=== PATIENT | female | born 1950 | race Two or more races ===

== ENCOUNTER 2025-08-01 08:51 | Day surgery (SDC) | payer MEDICARE, OTHER, SELFPAY ==
--- NOTE | 2025-07-05 12:45 | CM ---
Demographics:confirmed
Living situation: Lives with
Support Person Post Operatively:
History of
VN: yes, not currently on service
SNF: No
Outpatient: [facility], appointments made
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
PCP: active
Pharmacy: [facility]
Post Operative Discharge Plan: Home with , outpatient PT at [facility] in [place].
[2025-07-15 10:51] LABS: Hematocrit 38.6 % (37.0-47.0); Hemoglobin 12.4 g/dL (12.0-16.0); Mean Corp Hgb Conc. 32.1 g/dL (33.0-37.0); Mean Corpuscular Volume 98.2 fL (81.0-99.0); Platelet Count 342 10^3/uL (130-400); Red Cell Dist. Width 13.5 % (11.5-14.5)
[2025-07-15 11:33] LABS: ALT (SGPT) 18 U/L (0-35); AST (SGOT) 22 U/L (14-36); Albumin 4.2 g/dl (3.5-5.0); Alkaline Phosphatase 102 U/L (38-126); Blood Urea Nitrogen 20 mg/dl (7-17); Calcium 10.0 mg/dl (8.4-10.2); Carbon Dioxide 30 mmol/L (22-30); Chloride 106 mmol/L (98-107); Glucose 109 mg/dl (70-99); Potassium 5.1 mmol/L (3.5-5.1); Sodium 141 mmol/L (135-145); Total Protein 6.8 g/dl (6.3-8.2); eGFR > 60.00
[2025-07-15 11:44] LABS: Glycohemoglobin (HgbA1c) 6.3 % (4.0-5.6)
[2025-07-15 14:12] VITALS: BMI 36.5
[2025-07-19 09:21] VITALS: BMI 36.5
[2025-08-01] VITALS (20 sets, daily range): BP systolic 87–157; BP diastolic 38–79; PULSE 72–73; O2SAT 98; BMI 36.5
--- NOTE | 2025-08-01 09:14 | W.PN.ORTHO ---
Today's Communication / Plan
-
d/c when stable
Assessment
.
Dressing:
Clean, dry and intact.
Assessment:
Hx spleenectomy
Obesity BMI 36.5
Plan
.
Surgery / Date: L TKA Dr Alvarenga 08/01/25
DVT Prophylaxis: Aspirin
Activity:
Out of bed.
PT/OT
Discharge Plan: Home w/ Outpatient PT
Vital Signs and Labs
.
Vital Signs and Labs:
Lab Results
07/15/25 09:56
07/15/25 09:56
Temp Pulse Resp BP Pulse Ox
98.3 F 79 16 144/79 97
08/01/25 09:13 08/01/25 09:13 08/01/25 09:13 08/01/25 09:13 08/01/25 09:13
[2025-08-01] MEDS: NORMOSOL-R/PLASMALYTE-A 1000 IV ×2 (09:40→14:16)
[2025-08-01] MEDS: CELEBREX 200 MG PO (09:40)
[2025-08-01] MEDS: TYLENOL 650 MG PO ×3 (09:40→20:14)
[2025-08-01] MEDS: ZOFRAN 4 MG IV (12:30)
[2025-08-01] MEDS: ROXICODONE 5 MG PO ×2 (12:57→14:59)
[2025-08-01] MEDS: PROTONIX 40 MG PO (14:17)
--- NOTE | 2025-08-01 14:36 | PTCARENOTE ---
Pt arrived to [facility] s/p Left TKA. Left knee dressing with scant sanguineous drainage. 96% on RA. Teds/foot pumps on pt. Admission questions answered. Pt oriented to room and call tucker. Bed locked and in lowest position. at bedside. Care
ongoing.
[2025-08-01] MEDS: LIPITOR 20 MG PO (18:10)
[2025-08-01] MEDS: ANCEF 5 IV (18:10)
[2025-08-01] MEDS: DECADRON 4 MG IV (18:10)
[2025-08-01] MEDS: ASPIRIN 325 MG PO (18:10)
[2025-08-01] MEDS: TORADOL 15 MG IV (18:10)
[2025-08-01] MEDS: ROXICODONE 10 MG PO (19:18)
[2025-08-01] MEDS: BACTROBAN 2% OINTMENT 1 APPLIC NASAL (20:13)
[2025-08-01] MEDS: COLACE 100 MG PO (20:13)
[2025-08-01] MEDS: COREG 3.125 MG PO (20:13)
[2025-08-01] MEDS: SENOKOT 17.2 MG PO (20:13)
[2025-08-01] MEDS: PEPCID 20 MG PO (22:30)
[2025-08-01] MEDS: NEURONTIN 300 MG PO (22:30)
[2025-08-01] MEDS: DILAUDID 0.5 MG IV (22:31)
[2025-08-02] MEDS: TYLENOL PO (00:23)
[2025-08-02] MEDS: ANCEF 5 IV (02:35)
[2025-08-02] MEDS: TYLENOL 650 MG PO ×3 (03:06→11:12)
[2025-08-02 03:10] VITALS: BP 141/75
[2025-08-02] MEDS: TORADOL 15 MG IV (06:04)
[2025-08-02] MEDS: ROXICODONE 10 MG PO ×2 (06:04→11:12)
[2025-08-02] MEDS: DECADRON 4 MG IV (06:04)
[2025-08-02 07:55] VITALS: BP 137/57
[2025-08-02] MEDS: MOBIC 15 MG PO (08:01)
[2025-08-02] MEDS: BACTROBAN 2% OINTMENT 1 APPLIC NASAL (08:01)
[2025-08-02] MEDS: ASPIRIN 325 MG PO (08:01)
[2025-08-02] MEDS: SENOKOT 17.2 MG PO (08:01)
[2025-08-02] MEDS: PROTONIX 40 MG PO (08:01)
[2025-08-02] MEDS: COLACE 100 MG PO (08:01)
[2025-08-02 09:04] VITALS: BP 127/66; PULSE 80; O2SAT 95
--- NOTE | 2025-08-02 09:04 | CM ---
CM reviewed medical records. Plan for discharge to home with outpatient PT. Patient confirmed appointment.
PLAN: Home with outpatient PT.
[2025-08-02] MEDS: COREG PO (09:24)
[2025-08-02 10:16] VITALS: BP 120/64; BP 139/88; PULSE 77; O2SAT 96
--- NOTE | 2025-08-02 11:05 | W.PN.ORTHO ---
Today's Communication / Plan
-
d/c
Assessment
.
Distal Motor Intact: Yes
Dressing:
Clean, dry and intact.
Assessment:
Hx PACs-resume BB tonight-stable
Hx spleenectomy
Obesity BMI 36.5
--Cefadroxil abx ppx OP Rx
Plan
.
Surgery / Date: L LAURYN Alvarenga 08/01/25
DVT Prophylaxis: Aspirin
Activity:
Out of bed.
PT/OT
Discharge Plan: Home w/ Outpatient PT
Subjective
.
.:
Patient resting comfortably.
Vital Signs and Labs
.
Vital Signs and Labs:
Lab Results
07/15/25 09:56
07/15/25 09:56
Temp Pulse Resp BP Pulse Ox
98.9 F 77 17 120/64 95
08/02/25 07:55 08/02/25 09:24 08/02/25 07:55 08/02/25 09:24 08/02/25 09:43
Non-invasive Hgb result: 13
Physical Exam
-
HEENT: No pallor, cyanosis, or jaundice. Throat clear.
NECK: Supple. No JVD.
RESPIRATORY: Lungs clear to auscultation.
CVS: S1, S2 normal. RRR.� No murmur, rub or gallop.
ABDOMEN: Soft, non-tender. No distension. BS+/normal.
EXTREMITIES: strength equal, no calf pain with palpation
CARE TRANSITIONS MANAGER: AOx3. No focal deficits. property staff accountant grossly intact
--- NOTE | 2025-08-02 11:07 | W.DS.TRANS ---
DC Summary - Reinforced Ironworker
-
Discharge Instructions:
Discharge Diagnosis/Procedures L TKA Dr. Alvarenga 08/01/25
Diet As tolerated
Activity With Walker
Driving Restrictions No driving
Bathing Restrictions OK to Shower
Other Services PT
Instructions:
Stand-Alone Forms: Total Hip/Knee Replacement D/C
Changes to Home Medications: Yes
Discharge Medications:
DC Medications w/original date entered in [facility]
Vitamin D3 1 tab PO DAILY Supplement 12/16/23
atorvastatin 20 mg tablet 20 mg PO QPM High Cholesterol 12/16/23
carvedilol 6.25 mg tablet 6.25 mg PO BID Blood Pressure 12/16/23
pantoprazole 40 mg tablet,delayed release (Protonix) 40 mg PO DAILY Gastrointestinal Issue 12/16/23
mupirocin 2 % topical ointment 1 applic topical BID infection prevention #1 tube 07/14/25
cefadroxil 500 mg capsule 500 mg PO BID infection prevention #14 caps 07/15/25
dexamethasone 4 mg tablet 4 mg PO BID inflammation #6 tabs 07/15/25
gabapentin 300 mg capsule 300 mg PO HS sleep/pain #10 caps 07/15/25
meloxicam 15 mg tablet 15 mg PO DAILY anti-inflammatory #14 tabs 07/15/25
ondansetron 4 mg disintegrating tablet 4 mg PO Q6H PRN n/v #20 tabs 07/15/25
oxycodone 5 mg tablet 5 mg PO Q6H PRN 1 tab moderate pain, 2 tabs severe pain #30 tabs 07/15/25
Saccharomyces boulardii 250 mg capsule (Florastor) 250 mg PO BID #1 cap 08/01/25
acetaminophen 500 mg tablet 1,000 mg (2 x 500 mg) PO QID #0 tabs 08/01/25
aspirin 325 mg tablet 325 mg PO DAILY blood clot prevention #1 tab 08/01/25
docusate sodium 100 mg capsule (Colace) 100 mg PO BID stool softner #1 cap 08/01/25
magnesium hydroxide 400 mg/5 mL oral suspension (Milk of Magnesia) 30 ml PO HS PRN constipation #1 mL 08/01/25
sennosides 8.6 mg tablet (Senokot) 17.2 mg (2 x 8.6 mg) PO BID laxative #2 tabs 08/01/25
Home Medication Changes
mupirocin 2 % topical ointment 1 applic topical BID infection prevention #1 tube 07/14/25
cefadroxil 500 mg capsule 500 mg PO BID infection prevention #14 caps 07/15/25
dexamethasone 4 mg tablet 4 mg PO BID inflammation #6 tabs 07/15/25
gabapentin 300 mg capsule 300 mg PO HS sleep/pain #10 caps 07/15/25
meloxicam 15 mg tablet 15 mg PO DAILY anti-inflammatory #14 tabs 07/15/25
ondansetron 4 mg disintegrating tablet 4 mg PO Q6H PRN n/v #20 tabs 07/15/25
oxycodone 5 mg tablet 5 mg PO Q6H PRN 1 tab moderate pain, 2 tabs severe pain #30 tabs 07/15/25
Saccharomyces boulardii 250 mg capsule (Florastor) 250 mg PO BID #1 cap 08/01/25
acetaminophen 500 mg tablet 1,000 mg (2 x 500 mg) PO QID #0 tabs 08/01/25
aspirin 325 mg tablet 325 mg PO DAILY blood clot prevention #1 tab 08/01/25
docusate sodium 100 mg capsule (Colace) 100 mg PO BID stool softner #1 cap 08/01/25
magnesium hydroxide 400 mg/5 mL oral suspension (Milk of Magnesia) 30 ml PO HS PRN constipation #1 mL 08/01/25
sennosides 8.6 mg tablet (Senokot) 17.2 mg (2 x 8.6 mg) PO BID laxative #2 tabs 08/01/25
Pending Results: No
[2025-08-02 11:30] VITALS: BP 140/78
== END 2025-08-02 12:31 | disposition home or self-care (01) ==
LOC: SDS 08:51
PROVIDERS: ATTENDING PHYSICIAN Specialist; FAMILY PHYSICIAN Family Medicine; OTHER PHYSICIAN Physician Assistant Medical; REFERRING PHYSICIAN Internal Medicine
DX: M17.12 Unilateral primary osteoarthritis, left knee (principal); E66.9 Obesity, unspecified; Z68.36 Body mass index [BMI] 36.0-36.9, adult; D86.0 Sarcoidosis of lung; C25.9 Malignant neoplasm of pancreas, unspecified
CPT/HCPCS: 27447; 36415; 73560; 80053; 83036; 85027; 87070; 97110; 97116; 97162; 97166; 97530; 97535; C1713; C1776